=== PATIENT | female | born 1995 | race Caucasian/White ===

== ENCOUNTER 2016-10-02 12:01 | Emergency (ER) | payer BC, MEDICAID ==
--- NOTE | 2016-10-07 23:16 | ER ---
ADMIT: 10/02/2016 RM/LOC: ER [facility] MR#: [id number] [place], [place] [id number] [address] [place] [address] Emergency Room Report SEX: F AGE: 21 : 1995 DATE: 10/02/2016 ADDENDUM: CHIEF COMPLAINT: Nausea, vomiting, and diarrhea. HISTORY OF PRESENT ILLNESS: This is a 21-year-old, said she went to a concert last night. She only drinks 5 beers per her, but she said she has been vomiting multiple times, had diarrhea once and felt so miserable that she came to the ER. Upon arrival, she was vomiting in the room. I gave her Phenergan 25 mg IM. She said she actually feels significantly better. I tested the urine, did not have any ketones. No protein. No signs of infection. test was negative. CLINICAL IMPRESSION: Vomiting and diarrhea could be secondary to alcohol intake. DISPOSITION: Told to push fluids. Follow up with primary care physician if needed. SERA Kraus / Terence Abbott MD / alisha JOB #: [id number] CC: Terence Abbott MD, Attending Physician UNKNOWN, Family Physician
== END 2016-10-02 14:48 | disposition home or self-care (01) ==
LOC: ER 12:01
DX: R11.10 Vomiting, unspecified (principal); R19.7 Diarrhea, unspecified; F17.210 Nicotine dependence, cigarettes, uncomplicated; Z88.2 Allergy status to sulfonamides